=== PATIENT | male | born 2000 | race Caucasian/White ===

== ENCOUNTER 2022-04-11 18:16 | Emergency (ER) | payer BC, SELFPAY ==
[2022-04-11 18:33] VITALS: BP 116/68; RESP 18; TEMP 36.6; O2SAT 98
--- NOTE | 2022-04-11 19:02 | CRLHL7_ITS ---
For Patients: As a result of the Cures Act, medical imaging exams and procedure reports are released immediately into your electronic medical record. You may view this report before your referring provider. If you have questions, please contact your health care provider. Indication: Injury. Technique: Right foot 3 views. Comparison: None. Findings: Bones: Alignment is normal. No fractures or bone lesions. Joint spaces: Unremarkable. Soft tissues: Unremarkable. Impression: No evidence of an acute bony abnormality. Dictated by Med Montano MD @ 04/11/2022 7:51:51 PM (Electronically Signed)
--- NOTE | 2022-04-11 19:03 | CRLHL7_ITS ---
For Patients: As a result of the Cures Act, medical imaging exams and procedure reports are released immediately into your electronic medical record. You may view this report before your referring provider. If you have questions, please contact your health care provider. Indication: Injury. Technique: Left foot 3 views. Comparison: None. Findings: Bones: Alignment is normal. No fractures or bone lesions. Joint spaces: Unremarkable. Soft tissues: Unremarkable. Impression: No evidence of an acute bony abnormality. Dictated by Med Montano MD @ 04/11/2022 7:49:58 PM (Electronically Signed)
--- NOTE | 2022-04-11 20:26 | ED.LOWEXIN ---
HPI - Extremity Injury (Lower) General Chief Complaint: Extremity Pain/Injury, Lower Stated Complaint: Foot Injury Time Seen by Provider: 04/11/22 20:18 History of Present Illness HPI Narrative: Pt is a 21 year old gentleman who jumped off of his bunk 2 days ago and developed severe pain in his heels bilaterally. Pt has had no swelling. He can walk with mild discomfort. Pt did not fall and has had no other injuries. Pt has been taking OTC anti-inflamatories with limited effect. No bruising or instability. X rays negative for fracture. Related Data Home Medications Medication Instructions Recorded Confirmed No Known Home Medications 04/11/22 04/11/22 Allergies Allergy/AdvReac Type Severity Reaction Status Date / Time ketamine Allergy Verified 04/11/22 18:36 Review of Systems Status of ROS: Reports: 10 or more systems reviewed and unremarkable except as noted in History and below [facility] Medical History (Updated 04/11/22 @ 20:32 by Reagan Lai MD) No significant past medical history Surgical History (Updated 04/11/22 @ 20:30 by Augusto Stallings RN) No significant past surgical history Exam Narrative: Exam Narrative: EXAM GENERAL: Patient appears comfortable and well. EYES: No scleral icterus. ENT: Tympanic membranes and oropharynx normal. THYROID: no thyroid nodules or thyromegaly. LYMPH: No supraclavicular or cervical lymphadenopathy. SKIN: Visible skin seen during exam normal or with benign process only. EXT: No pain to palpation and normal alignment of the foot and ankle bilaterally. No bruising. Good circulation. HEART: Regular rate and rhythm with no murmurs, rubs, or gallops. LUNGS: Clear to auscultation bilaterally with no crackles or wheezes. ABD: Soft, non tender, non distended. PSYCH: Good eye contact, speech is not pressured. Const: Vital Signs, click to edit/add: Vital Signs - 24 hr 04/11/22 18:33 Temperature 97.8 F Respiratory Rate 18 Blood Pressure [Ri ght Upper Arm] 116/68 Pulse Oximetry 98 Oxygen Delivery Me thod Room Air Course Course Hospital Course: Pt seen and examined. Xrays reviewed. Vital Signs Vital signs: Initial Vital Signs Temperature 97.8 F 04/11/22 18:33 Temperature Source Temporal Artery Scan 04/11/22 18:33 Respiratory Rate 18 10/24/22 18:33 Blood Pressure 116/68 04/11/22 18:33 Blood Pressure Mean 84 04/11/22 18:33 Blood Pressure Position Sitting 04/11/22 18:33 Pulse Oximetry 98 04/11/22 18:33 Oxygen Delivery Method 04/11/22 18:33 Vital Signs Temperature 97.8 F 04/11/22 18:33 Respiratory Rate 18 04/11/22 18:33 Blood Pressure 116/68 04/11/22 18:33 Pulse Oximetry 98 04/11/22 18:33 Oxygen Delivery Method 04/11/22 18:33 Temperature 97.8 F 04/11/22 18:33 Respiratory Rate 18 04/11/22 18:33 Blood Pressure 116/68 04/11/22 18:33 Pulse Oximetry 98 04/11/22 18:33 Oxygen Delivery Method 04/11/22 18:33 MDM - Extremity Injury (Lower) MDM Narrative Medical decision making narrative: Pt presents after contusing both heels jumping off his loft. Pts pain persists after 2 days. Xrays and exam normal. Will treat symptomatically and have him follow up with MRI if symptoms persist. Differential Diagnosis Differential diagnosis: Likely ankle sprain and strain, acute internal derangement of knee, fracture of femur, fracture of toe and ankle fracture Discharge Plan Discharge Clinical Impression: Contusion of heel Patient Disposition: Home, Self-Care Condition: Stable Instructions: Foot Contusion (ED) Additional Instructions: Ice Tylenol Motrin Advance activity as tolerated Follow up for possible MRI if symptoms not improved over the next 3-5 days Activity Level: Activity as Tolerated Discharge Diet: Regular Prescriptions: No Action No Known Home Medications Stand Alone Forms: MyHealth Info Instructions
[2022-04-11 20:48] VITALS: BP 120/70; PULSE 74; RESP 18; TEMP 36.7; O2SAT 99
[2022-04-11 20:49] VITALS: BP 120/70; PULSE 74; RESP 18; TEMP 36.7
== END 2022-04-11 20:49 | disposition home or self-care (01) ==
PROVIDERS: Emergency Provider Internal Medicine
DX: S90.32XA Contusion of left foot, initial encounter (principal); S90.31XA Contusion of right foot, initial encounter; Y93.39 Activity, other involving climbing, rappelling and jumping off; Y92.092 Bedroom in other non-institutional residence as the place of occurrence of the external cause; Y99.8 Other external cause status
CPT/HCPCS: 73630; 99283